=== PATIENT | male | born 1985 | race African-American/Black ===

== ENCOUNTER 2017-07-16 15:21 | Emergency (ER) | payer OTHER ==
[~2017-07-16] VITALS: Ht 177.8 cm; Wt 72.6 kg
[~2017-07-16 15:21] MED LIST: NOHOMEMEDICATIONS
[2017-07-16 15:22] VITALS: BP 134/88
[2017-07-16 15:39] LABS: URINE BILIRUBIN NEGATIVE (Negative); URINE BLOOD NEGATIVE (Negative); URINE COLOR YELLOW; URINE GLUCOSE-RANDOM* NEGATIVE (Negative); URINE KETONES NEGATIVE (Negative); URINE LEUKOCYTES-REFLEX NEGATIVE (Negative); URINE PROTEIN (DIPSTICK) NEGATIVE (Negative); URINE UROBILINOGEN 0.2 E.U./dl (0.2-1.0)
== END 2017-07-16 16:07 | disposition home or self-care (01) ==
LOC: ER 15:21
PROVIDERS: Physician Assistant
DX: R10.32 Left lower quadrant pain (principal)

== ENCOUNTER 2018-08-30 11:34 | Emergency (ER) | payer OTHER ==
[~2018-08-30] VITALS: Ht 177.8 cm; Wt 63.5 kg
[2018-08-30 11:41] VITALS: BP 134/88
== END 2018-08-30 12:33 | disposition home or self-care (01) ==
LOC: ER 11:34
DX: Z20.2 Contact with and (suspected) exposure to infections with a predominantly sexual mode of transmission (principal)